=== PATIENT | male | born 1945 | race Two or more races ===

== ENCOUNTER 2018-06-19 13:15 | Inpatient (IN) | payer OTHER ==
[~2018-06-19] VITALS: Ht 167.6 cm; Wt 68.0 kg
[2018-06-19] MEDS ORDERED: LABETALOL HCL200 MG PO (15:22)
== END 2018-06-28 10:47 | disposition home or self-care (01) | DRG 330 ==
LOC: SURH 06-25 05:55 → O/R 06-25 05:55 → SURH 06-25 11:32 → SURG 06-25 13:15 → SURH 06-28 10:47
PROVIDERS: Colon & Rectal Surgery
PROC: 0TQB4ZZ Repair Bladder, Percutaneous Endoscopic Approach (ICD-10-PCS; 2018-06-25)
PROC: 07TC4ZZ Resection of Pelvis Lymphatic, Percutaneous Endoscopic Approach (ICD-10-PCS; 2018-06-25)
PROC: 0DUU47Z Supplement Omentum with Autologous Tissue Substitute, Percutaneous Endoscopic Approach (ICD-10-PCS; 2018-06-25)
PROC: 0DJD8ZZ Inspection of Lower Intestinal Tract, Via Natural or Artificial Opening Endoscopic (ICD-10-PCS; 2018-06-25)
PROC: 0DTN4ZZ Resection of Sigmoid Colon, Percutaneous Endoscopic Approach (ICD-10-PCS; principal; 2018-06-25 19:30)
DX: K57.32 Diverticulitis of large intestine without perforation or abscess without bleeding (principal); N99.72 Accidental puncture and laceration of a genitourinary system organ or structure during other procedure

== ENCOUNTER 2019-07-18 07:50 | Day surgery (SDC) | payer OTHER ==
[~2019-07-18 07:50] MED LIST: LABETALOL HCL200 MG PO
== END 2019-07-18 14:00 | disposition home or self-care (01) ==
LOC: AMB-ENDOS 07:50
DX: D12.3 Benign neoplasm of transverse colon (principal); D12.4 Benign neoplasm of descending colon; K64.1 Second degree hemorrhoids; Z12.11 Encounter for screening for malignant neoplasm of colon